=== PATIENT | male | born 1960 | race Caucasian/White ===

== ENCOUNTER 2022-06-27 19:34 | Emergency (ER) | payer OTHER, SELFPAY ==
[2022-06-27] VITALS (8 sets, daily range): BP systolic 137–206; BP diastolic 91–137; PULSE 76–98; RESP 16–18; TEMP 35.7; O2SAT 91–96; BMI 30.8
--- NOTE | 2022-06-27 20:08 | CRLHL7_ITS ---
For Patients: As a result of the Century Cures Act, medical imaging exams and procedure reports are released immediately into your electronic medical record. You may view this report before your referring provider. If you have questions, please contact your health care provider. INDICATION: Back pain. TECHNIQUE: CT lumbar spine without contrast. COMPARISON: None. FINDINGS: Vertebrae: Alignment is normal. No acute fracture. Sclerotic focus right L5 vertebral body, likely bone island. Discs and facet joints: Mild multilevel degenerative disc disease. Facet joints are within normal limits. Extraspinal findings: Prevertebral soft tissues and visualized retroperitoneum are unremarkable. IMPRESSION: 1. No acute osseous abnormality. 2. Mild lumbar spine degenerative changes. Please note that all CT scans at this facility use dose modulation, iterative reconstruction, and/or weight-based dosing when appropriate to reduce radiation dose to as low as reasonably achievable. Dictated by Ahmet Capps MD @ 06/27/2022 10:34:50 PM (Electronically Signed)
[2022-06-27 20:28] LABS: Basophils Absolute Auto 0.02 K/uL (0.00-0.30); Basophils Percent Auto 0.2 % (0.0-3.0); Eosinophils Absolute Auto 0.05 K/uL (0.00-0.50); Eosinophils Percent Auto 0.5 % (0.0-7.0); Hematocrit 52.1 % (37.0-53.0); Hemoglobin* 17.7 gm/dL (13.5-17.5); Immature Granulocytes Abs Auto 0.06 K/uL (0.00-0.30); Lymphocytes Absolute Auto 2.27 K/uL (0.90-2.90); Lymphocytes Percent Auto 21.4 % (20-44); Mean Corpuscular HGB Conc 34 gm/dL (32-36); Mean Corpuscular Hemoglobin 29 pg (26-34); Mean Corpuscular Volume 85 fL (80-100); Monocytes Percent Auto 4.5 % (0.0-11.0); Neutrophils Percent Auto 72.8 % (42.0-72.0); Platelet Count* 237 K/uL (140-440); RDW Coefficient of Variation % 12.1 % (11.5-15.5); Red Blood Count 6.12 m/uL (4.30-5.90); White Blood Count* 10.63 K/uL (4.50-11.00)
[2022-06-27] MEDS: LORazepam 2 MG/ML inj 0.5 MG IVP (20:28)
[2022-06-27] MEDS: HYDROmorphone 0.5 mg/0.5 ml inj IVP ×2 (20:32→21:57)
[2022-06-27 20:33] LABS: Slide Review Reflex No
[2022-06-27] MEDS: KETOROLAC 30 MG/ML inj IVP (20:36)
[2022-06-27] MEDS: 0.9 % SODIUM CHLORIDE 1000 ml 1,000 ML IV (20:39)
--- NOTE | 2022-06-27 21:03 | ED_ITS ---
HPI - Extremity Injury (Lower) General Date Seen: 06/27/22 Chief Complaint: Hip Injury/Pain Stated Complaint: PAIN Time Seen by Provider: 06/27/22 19:43 Source: patient and family Mode of arrival: EMS Limitations: no limitations History of Present Illness HPI Narrative: Patient is a 62-year-old gentleman was completed by his comes in with increased pain in his right lower extremity. He has been battling this for about a week. After a pickle ball injury. He initially thought it was is hip but was saw [facility] on Tuesday, there is some narrowing of L2-L3 and they suspect he may be having a disc type issue. He was started on Medrol Dosepak, tramadol, Flexeril, and acetaminophen. He is getting behind and he has increasing pain. His called the ambulance and he is brought into emergency room today. He has MRI scheduled for Tuesday, No bowel or bladder issues associated with this. Denies fevers chills or sweats no history of malignancy, no history of other trauma, or falls. complaint: other Onset (ago): week(s) Type of Injury: other Place: street/outdoors Severity: severe Relieving factors: nothing, immobilization and rest Exacerbating factors: movement Context: other (Pickle ball) Associated symptoms: snap/pop sensation Other symptoms: none Related Data Home Medications Medication Instructions Recorded Confirmed cyclobenzaprine 5 mg tablet mg 06/27/22 methylprednisolone 4 mg tablets in mg 06/27/22 a dose pack tramadol 50 mg tablet mg 06/27/22 Previous Rx's Medication Instructions Recorded gabapentin 300 mg capsule 300 mg PO TID #90 caps 06/27/22 Allergies Allergy/AdvReac Type Severity Reaction Status Date / Time No Known Drug Allergies Allergy Verified 06/27/22 19:36 Review of Systems Status of ROS: Reports: 10 or more systems reviewed and unremarkable except as noted in History and below PFSH PFSH Social History Smoking Status: Never smoker Do you use any of these nicotine containing products: None Second hand tobacco smoke exposure: No How often do you have a drink containing alcohol: monthly or less How often do you have six or more drinks on one occasion: Never AUDIT-C Alcohol total score: 1 Non-prescribed substance use: denies use Exam Narrative: Exam Narrative: Patient I find in stayed 2, in no apparent distress, with his right hip flex, and internally rotated, and flexed at the knee. Describes pain radiating from his back hip region, around to the front and the upper part of his leg but a little bit over his anterior bejarano bejarano also. Abdomen is soft there is no guarding no hepato spleeno megaly back is shows no tenderness on palpation percussion, perianal sensation is preserved, SLR is negative to 90? lying. Internal external rotation of the right hip is normal, he has decreased right knee jerk I would describe as 1+ is left sides 2+, 1+ ankle jerks bilaterally, his power is normal in his EHLs great toe flexors ankle dorsiflexors plantar flexors knee flexion inches and hip flexors bilaterally. Sensation is normal. Pulses are normal there is no edema, Const: Vital Signs, click to edit/add: Vital Signs - 24 hr 06/27/22 19:36 06/27/22 19:34 06/27/22 20:00 Temperature 96.2 F L Pulse Rate [Pulse Oximeter] 78 76 87 Respiratory Rate 18 Blood Pressure [Ri ght Upper Arm] 200/137 H 200/137 H 206/116 H Pulse Oximetry 96 95 91 Oxygen Delivery Me thod Room Air Room Air Room Air 06/27/22 20:30 06/27/22 20:40 06/27/22 21:00 Temperature Pulse Rate [Pulse Oximeter] 91 83 Respiratory Rate Blood Pressure [Ri ght Upper Arm] 189/113 H 185/108 H 163/107 H Pulse Oximetry 93 91 Oxygen Delivery Me thod Room Air Room Air Room Air 06/27/22 23:00 06/27/22 22:00 Temperature 96.2 F L Pulse Rate [Pulse Oximeter] 98 94 Respiratory Rate 16 18 Blood Pressure [Ri ght Upper Arm] 137/91 H 165/108 H Pulse Oximetry 94 92 Oxygen Delivery Me thod Room Air Room Air Documenting provider has reviewed patient's vital signs: yes Course Course Hospital Course: I reviewed with him the CT scan results did not show a lot of change. There is some degenerative changes but no specific impingement. I still think there is likely a lumbar radiculopathy likely high lumbar given the radiation pattern. Reassured by the CT findings at this point. I think it would be reasonable to go home as he is able to walk around on the road test here. He was still having pain and I had to do some gentle reassurance that I think this will also improve but will not be totally gone. We will stop the tramadol having continue the Medrol and add in some oxycodone with gabapentin they will call [facility] tomorrow, and speak to their provider, the risks benefits and side effects of the medications discussed in detail. They were comfortable with this. Vital Signs Vital signs: Initial Vital Signs Pulse Rate 76 06/27/22 19:34 Blood Pressure 200/137 H 06/27/22 19:34 Blood Pressure Mean 158 06/27/22 19:34 Blood Pressure Position Supine 06/27/22 19:34 Pulse Oximetry 95 06/27/22 19:34 Oxygen Delivery Method 06/27/22 19:34 Vital Signs Pulse Rate 76 06/27/22 19:34 Blood Pressure 200/137 H 06/27/22 19:34 Pulse Oximetry 95 06/27/22 19:34 Oxygen Delivery Method 06/27/22 19:34 Temperature 96.2 F L 06/27/22 22:00 Pulse Rate 98 06/27/22 23:00 Respiratory Rate 16 06/27/22 23:00 Blood Pressure 137/91 H 06/27/22 23:00 Pulse Oximetry 94 06/27/22 23:00 Oxygen Delivery Method 06/27/22 23:00 MDM - Extremity Injury (Lower) MDM Narrative Medical decision making narrative: Life-threatening differential diagnosis considered include: Cauda equina an epidural abscess, other differential diagnosis considered includes sprain, contusion, nerve root entrapment, radiculopathy, muscle spasm, urolithiasis, lumbar fracture, pyelonephritis, appendicitis, biliary colic, as well as other etiologies. The patient denies saddle anesthesia bowel or bladder incontinence or lower extremity weakness, recent weight loss, or history of malignancy. Patient has back pain, I suspect from a radiculopathy, explained to them we will use some pain medications Dilaudid, Toradol, Ativan, I will order a CT, they were initially against this but I explained to it will give us helpful information. MRI is not an option at this institution right now. Medical Records Attestation: I reviewed the patient's medical records. Lab Data Attestation: I reviewed the patient's lab results. Lab results narrative: Labs were reassuring at this point, glucose level was elevated likely from his glucocorticoids that he has been taking, and the glucosuria seen in his urine was also a manifestation of this. Labs: Lab Results 06/27/22 06/27/22 06/27/22 Range/Units 20:22 20:22 21:50 WBC 10.63 (4.50-11.00) K/uL RBC 6.12 H (4.30-5.90) m/uL Hgb 17.7 H (13.5-17.5) gm/dL Hct 52.1 (37.0-53.0) % MCV 85 (80-100) fL MCH 29 (26-34) pg MCHC 34 (32-36) gm/dL RDW Coeff of [place] 12.1 (11.5-15.5) % Plt Count 237 (140-440) K/uL Neut % (Auto) 72.8 H (42.0-72.0) % Lymph % (Auto) 21.4 (20-44) % [place] % (Auto) 4.5 (0.0-11.0) % Eos % (Auto) 0.5 (0.0-7.0) % Baso % (Auto) 0.2 (0.0-3.0) % Neut # (Auto) 7.70 H (1.7-7.0) K/uL Lymph # (Auto) 2.27 (0.90-2.90) K/uL [place] # (Auto) 0.50 (0.00-0.90) K/UL Eos # (Auto) 0.05 (0.00-0.50) K/uL Baso # (Auto) 0.02 (0.00-0.30) K/uL Abs Immat Gran (auto) 0.06 (0.00-0.30) K/uL Sodium 139 (135-149) mmol/L Potassium 4.4 (3.6-5.1) mmol/L Chloride 97 (96-114) mmol/L Carbon Dioxide 30 (20-32) mmol/L BUN 20 (7-30) mg/dL Creatinine 0.8 (0.5-1.5) mg/dL Estimated Creat Clear 77.06 Estimated GFR 99 ml/min Glucose 290 H (60-115) mg/dL Calcium 9.8 (8.4-10.6) mg/dL C-Reactive Protein < 0.5 L (0.5-1.0) mg/dL Urine Color Yellow (Yellow) Urine Appearance Clear (Clear) Urine pH 5.0 (5.0-8.5) Ur Specific [place] >= 1.030 (1.000-1.030) Urine Protein 1+ A (Negative) Urine Glucose (UA) 3+ A (Negative) Urine Ketones 2+ A (Negative) Urine Blood Negative (Negative) Urine Nitrite Negative (Negative) Urine Bilirubin Negative (Negative) Urine Urobilinogen 0.2 (0.2-1.0) Ur Leukocyte Esterase Negative (Negative) Urine RBC 0-2 (0-2) Urine WBC 2-5 (0-5) Ur Squamous Epith Cells None (None-Few) Urine Bacteria Few A (None) Imaging Data Lumbar CT: Attestation: I have reviewed the pertinent imaging results. My impression: No acute findings no fracture Radiologist's impression: Patient: TOPHER GIBBONS Facility:?[facility] Patient ID:?[id number] Site Patient ID:?[id number]. Site :?[id number] Study:?CT Spine Lumbar without contrast-06/27/2022 9:32:08 PM Ordering Physician:Cal Banrard Final Report: INDICATION: Back pain. TECHNIQUE: CT lumbar spine without contrast. COMPARISON: None. FINDINGS: Vertebrae: Alignment is normal. No acute fracture. Sclerotic focus right L5 vertebral body, likely bone island. Discs and facet joints: Mild multilevel degenerative disc disease. Facet joints are within normal limits. Extraspinal findings: Prevertebral soft tissues and visualized retroperitoneum are unremarkable. IMPRESSION: 1. No acute osseous abnormality. 2. Mild lumbar spine degenerative changes. Please note that all CT scans at this facility use dose modulation, iterative reconstruction, and/or weight-based dosing when appropriate to reduce radiation dose to as low as reasonably achievable. Dictated by Ahmet Capps MD @ 06/27/2022 10:34:50 PM (Electronic Signature) Discharge Plan Discharge Clinical Impression: Lumbar radiculopathy, right Patient Disposition: Home w/ Parent or Adult Condition: Improved Instructions: Lumbar Radiculopathy (ED), Back Pain (ED), Epidural Steroid Injection (DC) Additional Instructions: Home, rest, use of ice, continue with the Medrol Dosepak, may use some ibuprofen 800 mg p.o. t.i.d., please do not use Tylenol with the Percocet as there is already acetaminophen in there. Stool softener Colace 2 tablets twice daily was also suggested plus or minus MiraLax as you will become constipated with the narcotic medication. Hold off on using the tramadol at this point. Please call your [facility] provider tomorrow. Activity Level: Light activity and Up with assist Prescriptions: New gabapentin 300 mg capsule 300 mg PO TID Qty: 90 2RF No Action tramadol 50 mg tablet methylprednisolone 4 mg tablets,dose pack cyclobenzaprine 5 mg tablet Follow Up/Referrals: Ermelinda Hough MD [Staff Physician] - Stand Alone Forms: [employer] Info Instructions
[2022-06-27 21:05] LABS: Blood Urea Nitrogen* 20 mg/dL (7-30); C Reactive Protein* < 0.5 mg/dL (0.5-1.0); Calcium* 9.8 mg/dL (8.4-10.6); Carbon Dioxide* 30 mmol/L (20-32); Chloride* 97 mmol/L (96-114); Creatinine* 0.8 mg/dL (0.5-1.5); Est. Creatinine Clearance* 77.06; Estimated Glomerular Filt Rate 99 ml/min; Glucose* 290 mg/dL (60-115); Potassium* 4.4 mmol/L (3.6-5.1); Sodium* 139 mmol/L (135-149)
[2022-06-27 22:02] LABS: Appearance Urine Clear (Clear); Bilirubin Urine Negative (Negative); Blood Urine Negative (Negative); Color Urine Yellow (Yellow); Glucose Urine 3+ (Negative); Ketones Urine 2+ (Negative); Leukocyte Esterase Urine Negative (Negative); Nitrite Urine Negative (Negative); Protein Urine 1+ (Negative); Specific Gravity Urine >= 1.030 (1.000-1.030); Urobilinogen Urine 0.2 (0.2-1.0)
[2022-06-27 22:11] LABS: Bacteria Urine Few; RBC Urine 0-2 (0-2)
[2022-06-27] MEDS: OXYCODONE 5 MG TABLET 10 MG PO (23:30)
[2022-06-27] MEDS: GABAPENTIN 300 MG CAPSULE PO (23:31)
== END 2022-06-27 23:45 | disposition home or self-care (01) ==
PROVIDERS: Emergency Provider Family Medicine
DX: M54.16 Radiculopathy, lumbar region (principal)
CPT/HCPCS: 36415; 72131; 80048; 81001; 85025; 86140; 87086; 96374; 96375; 96376; 99284; A0425; A0427; A9270; J1170; J1885; J2060; J7030

== ENCOUNTER 2022-07-19 11:40 | Outpatient (CLI) | payer OTHER, SELFPAY ==
[2022-07-19 14:50] LABS: Cholesterol* 293 mg/dL (90-199); Triglycerides* 374 mg/dL (40-149)
[2022-07-19 14:51] LABS: HDL Cholesterol* 48 mg/dL (>=40); LDL Cholesterol Calculated 170 mg/dL (<100)
[2022-07-19 15:21] LABS: PSA Screen* 0.47 ng/mL (0.10-4.00)
== END 2022-07-19 11:41 | disposition home or self-care (01) ==
PROVIDERS: PCP Family Medicine; Visit Provider Family Medicine
DX: E78.2 Mixed hyperlipidemia (principal); I10 Essential (primary) hypertension; F41.9 Anxiety disorder, unspecified; E11.9 Type 2 diabetes mellitus without complications; Z12.5 Encounter for screening for malignant neoplasm of prostate
CPT/HCPCS: 80061; 84153

== ENCOUNTER 2022-10-11 14:12 | Outpatient (CLI) | payer OTHER, SELFPAY ==
[2022-10-12 09:08] LABS: Cholesterol* 192 mg/dL (90-199)
[2022-10-12 09:09] LABS: HDL Cholesterol* 42 mg/dL (>=40); LDL Cholesterol Calculated 88 mg/dL (<100); Triglycerides* 308 mg/dL (40-149)
== END 2022-10-11 14:13 | disposition home or self-care (01) ==
LOC: FBOREF 14:13
PROVIDERS: PCP Family Medicine; Visit Provider Family Medicine
DX: E78.5 Hyperlipidemia, unspecified (principal)
CPT/HCPCS: 80061

== ENCOUNTER 2023-01-17 13:03 | Outpatient (CLI) | payer OTHER, SELFPAY | END 2023-01-17 13:04 | disposition home or self-care (01) | LOC: FBOREF 13:03 | PROVIDERS: PCP Family Medicine; Visit Provider Family Medicine | DX: I10 Essential (primary) hypertension (principal); E78.5 Hyperlipidemia, unspecified | CPT/HCPCS: 80048 ==

== ENCOUNTER 2024-01-19 09:58 | Outpatient (CLI) | payer MEDICARE, SELFPAY ==
[2024-01-19 14:31] LABS: Creatinine Urine 117.9 mg/dL
[2024-01-19 14:35] LABS: Microalbumin Creatinine Ratio 10 mg/g (0-30); Microalbumin Urine 2 mg/dL
== END 2024-01-19 09:59 | disposition home or self-care (01) ==
PROVIDERS: PCP Family Medicine; Visit Provider Family Medicine
DX: E11.9 Type 2 diabetes mellitus without complications (principal); I10 Essential (primary) hypertension; E78.2 Mixed hyperlipidemia; E03.8 Other specified hypothyroidism; F41.9 Anxiety disorder, unspecified; Z12.5 Encounter for screening for malignant neoplasm of prostate
CPT/HCPCS: 80048; 80061; 82043; 82570; G0103

== ENCOUNTER 2024-05-21 19:28 | Outpatient (CLI) | payer MEDICARE, SELFPAY ==
--- NOTE | 2024-06-26 08:34 | W.PM.SLEEP ---
Sleep Study Details Details Interpreting Provider: Reagan Date of Sleep Study: 05/21/24 Sleep Study Details: STUDY TYPE:? Home unattended ? BMI: 31.3 ORDERING PROVIDER:Jackson iKrk INDICATION:? Concern about sleep apnea ? SLEEP SUMMARY:? 507 minutes monitored RESPIRATORY SUMMARY:? AHI per CMS guidelines 21.8 Low oxygen 76 19.7% of study oxygen less than 90% Snoring 18.8% PERIODIC LIMB MOVEMENTS OF SLEEP:? Not recorded CARDIAC:? Range 54-102, mean 67.3 IMPRESSION:? Moderate obstructive sleep apnea with significant hypo oxygenation RECOMMENDATION: Treatment options include AutoSet CPAP and dental appliance. Dental appliance is less likely to be effective given severity of apnea.
== END 2024-05-21 19:29 | disposition home or self-care (01) ==
LOC: SLEEP 19:28
PROVIDERS: PCP Family Medicine; Visit Provider Otolaryngology
DX: G47.33 Obstructive sleep apnea (adult) (pediatric) (principal)
CPT/HCPCS: 95806

== ENCOUNTER 2025-03-06 12:36 | Outpatient (CLI) | payer MEDICARE, SELFPAY | END 2025-03-06 12:37 | disposition home or self-care (01) | LOC: FBOREF 12:37 | PROVIDERS: PCP Family Medicine; Visit Provider Family Medicine | DX: E78.2 Mixed hyperlipidemia (principal); I10 Essential (primary) hypertension; Z12.5 Encounter for screening for malignant neoplasm of prostate | CPT/HCPCS: 80048; 80061; 84460; G0103 ==

== ENCOUNTER 2025-10-14 13:04 | Outpatient (CLI) | payer MEDICARE, SELFPAY | END 2025-10-14 13:05 | disposition home or self-care (01) | LOC: NFLDREF 10-17 11:42 | PROVIDERS: PCP Family Medicine; Referring Provider Family Medicine; Visit Provider Family Medicine | DX: E11.9 Type 2 diabetes mellitus without complications (principal) | CPT/HCPCS: 82043; 82570 ==